=== PATIENT | female | born 1945 | race Caucasian/White ===

== ENCOUNTER 2016-07-30 20:15 | Emergency (ER) | payer MEDICARE, OTHER ==
[~2016-07-30] VITALS: Ht 165.1 cm; Wt 63.5 kg
[2016-07-30 20:26] VITALS: BP 134/80
== END 2016-07-30 20:52 | disposition home or self-care (01) ==
LOC: ER 20:15
DX: S93.402A Sprain of unspecified ligament of left ankle, initial encounter (principal); E03.9 Hypothyroidism, unspecified; X58.XXXA Exposure to other specified factors, initial encounter; Y92.89 Other specified places as the place of occurrence of the external cause; Y93.89 Activity, other specified; Y99.8 Other external cause status
CPT/HCPCS: A4606; Z7610